=== PATIENT | male | born 1985 | race Caucasian/White ===

== ENCOUNTER 2017-09-10 14:05 | Emergency (ER) | payer SELFPAY ==
[~2017-09-10] VITALS: Ht 170.2 cm; Wt 83.5 kg
[2017-09-10 14:41] VITALS: Ht 170.2 cm; Wt 83.5 kg
[2017-09-10 16:13] LABS: BASOPHIL % 0.4 % (0-2); PLATELET COUNT 217 x10^3mcL (130-400); RED CELL DISTRIBUTION WIDTH 13.4 % (11.5-14.5)
[2017-09-10 16:25] LABS: CALCIUM 8.9 mg/dL (8.5-10.1); CARBON DIOXIDE 29.5 mmol/L (21-32); CHLORIDE SERUM 104 mmol/L (98-107); CREATININE SERUM 0.8 mg/dL (0.7-1.3); GFR1 > 60 mL/min; GLUCOSE SERUM 92 mg/dL (74-106); POTASSIUM SERUM 4.2 mmol/L (3.5-5.1); SODIUM SERUM 142 mmol/L (136-145)
[2017-09-10 16:29] LABS: ALKALINE PHOSPHATASE 100 U/L (46-116); ALT/SGPT 49 U/L (16-63); AST/SGOT 33 U/L (15-37); BILIRUBIN TOTAL 0.3 mg/dL (0.20-1.00); TOTAL PROTEIN, SERUM 7.6 g/dL (6.4-8.2)
[2017-09-10 17:04] VITALS: BP 136/84
== END 2017-09-10 17:04 | disposition home or self-care (01) ==
LOC: ED 14:05
PROVIDERS: Emergency Medicine
DX: R07.89 Other chest pain (principal)
CPT/HCPCS: 36415; 85378; J1885; Q0092

== ENCOUNTER 2017-09-22 22:18 | Inpatient (IN) | payer MEDICAID ==
[~2017-09-22] VITALS: Ht 172.7 cm; Wt 85.4 kg
[2017-09-22 23:00] VITALS: Ht 172.7 cm; Wt 85.4 kg
[2017-09-22 23:35] LABS: BASOPHIL % 0.3 % (0-2); CALCIUM 8.9 mg/dL (8.5-10.1); CARBON DIOXIDE 27.7 mmol/L (21-32); CHLORIDE SERUM 104 mmol/L (98-107); CREATININE SERUM 0.8 mg/dL (0.7-1.3); GFR1 > 60 mL/min; GLUCOSE SERUM 101 mg/dL (74-106); PLATELET COUNT 237 x10^3mcL (130-400); POTASSIUM SERUM 3.7 mmol/L (3.5-5.1); RED CELL DISTRIBUTION WIDTH 13.8 % (11.5-14.5); SODIUM SERUM 137 mmol/L (136-145)
[2017-09-22 23:41] LABS: ALBUMIN 3.9 g/dL (3.4-5.0); ALKALINE PHOSPHATASE 94 U/L (46-116); ALT/SGPT 281 U/L (16-63); AST/SGOT 652 U/L (15-37); BILIRUBIN TOTAL 0.5 mg/dL (0.20-1.00); LIPASE 164 IU/L (73-393); TOTAL PROTEIN, SERUM 7.2 g/dL (6.4-8.2)
[2017-09-23 00:27] LABS: AMPHETAMINE QUAL UR NONE DETECTED (NEG <=1000)
[2017-09-23 05:01] LABS: microscopic required? NO
[2017-09-23 05:05] LABS: UA SPECIFIC GRAVITY <=1.005 (1.005-1.035); urine erythrocyte NEGATIVE (NEGATIVE)
[2017-09-23 05:20] VITALS: BP 122/70
[2017-09-23 08:08] LABS: MAGNESIUM 1.9 mg/dL (1.8-2.4); PHOSPHOROUS 4.9 mg/dL (2.5-4.9)
[2017-09-23 08:16] LABS: CHOLESTEROL/HDL RATIO 2.3
[2017-09-23 08:22] LABS: FREE T4 0.97 ng/dL (0.76-1.46); FREE THYROXINE INDEX 2.1 ug/dL (1.4-4.5); T4(THYROXINE) 5.8 ug/dL (4.7-13.3)
[2017-09-23 08:32] LABS: T3 TOTAL 0.98 ng/mL
[2017-09-23 10:25] LABS: C REACTIVE PROTEIN 0.2 mg/dL (<=0.9)
[2017-09-23 10:43] VITALS: BP 119/71
[2017-09-23 14:31] VITALS: BP 113/63
[2017-09-23 17:13] VITALS: BP 107/47
[2017-09-23 21:33] VITALS: BP 108/60
[2017-09-24 05:35] VITALS: BP 102/49
[2017-09-24 06:19] LABS: BASOPHIL % 0.2 % (0-2); PLATELET COUNT 198 x10^3mcL (130-400); RED CELL DISTRIBUTION WIDTH 13.9 % (11.5-14.5)
[2017-09-24 06:39] LABS: CALCIUM 8.5 mg/dL (8.5-10.1); CARBON DIOXIDE 26.7 mmol/L (21-32); CHLORIDE SERUM 108 mmol/L (98-107); CREATININE SERUM 0.8 mg/dL (0.7-1.3); GFR1 > 60 mL/min; GLUCOSE SERUM 101 mg/dL (74-106); MAGNESIUM 1.8 mg/dL (1.8-2.4); POTASSIUM SERUM 4.2 mmol/L (3.5-5.1); SODIUM SERUM 139 mmol/L (136-145)
[2017-09-24 08:32] LABS: BILIRUBIN DIRECT 0.18 mg/dL (0.0-0.2); BILIRUBIN TOTAL 0.82 mg/dL (0.20-1.00); TOTAL PROTEIN, SERUM 6.2 g/dL (6.4-8.2)
[2017-09-24 08:34] LABS: ALBUMIN 3.2 g/dL (3.4-5.0)
[2017-09-24 09:19] VITALS: BP 103/51
[2017-09-24 18:44] VITALS: BP 115/58
[2017-09-24 21:28] VITALS: BP 122/65
[2017-09-25 05:47] VITALS: BP 105/59
[2017-09-25 07:52] LABS: BASOPHIL % 0.2 % (0-2); PLATELET COUNT 195 x10^3mcL (130-400); RED CELL DISTRIBUTION WIDTH 13.7 % (11.5-14.5)
[2017-09-25 08:21] LABS: ALKALINE PHOSPHATASE 59 U/L (46-116); ALT/SGPT 187 U/L (16-63); AST/SGOT 280 U/L (15-37); BILIRUBIN TOTAL 0.63 mg/dL (0.20-1.00); CARBON DIOXIDE 27.1 mmol/L (21-32); CHLORIDE SERUM 109 mmol/L (98-107); CREATININE SERUM 0.7 mg/dL (0.7-1.3); GFR1 > 60 mL/min; GLUCOSE SERUM 89 mg/dL (74-106); MAGNESIUM 1.7 mg/dL (1.8-2.4); PHOSPHOROUS 3.4 mg/dL (2.5-4.9); POTASSIUM SERUM 3.9 mmol/L (3.5-5.1); SODIUM SERUM 141 mmol/L (136-145)
[2017-09-25 08:24] LABS: ALBUMIN 3.1 g/dL (3.4-5.0)
[2017-09-25 08:32] VITALS: BP 104/62
[2017-09-25 09:48] VITALS: BP 104/62
[2017-09-25] MEDS ORDERED: MECLIZINE HYD12.5 MG PO (11:30)
[2017-09-25 12:07] VITALS: BP 104/62
[2017-09-25 13:41] VITALS: BP 122/82
== END 2017-09-25 14:20 | disposition home or self-care (01) ==
LOC: ED 22:18 → DU 09-23 04:35 → MU 09-24 10:51
PROVIDERS: Emergency Medicine; Family Medicine; Internal Medicine Gastroenterology
DX: B17.9 Acute viral hepatitis, unspecified (principal); M62.82 Rhabdomyolysis; K21.9 Gastro-esophageal reflux disease without esophagitis; M94.0 Chondrocostal junction syndrome [Tietze]
CPT/HCPCS: 83880; 84439; J1885; J7030; J8597; Q0092; Q0162; Q9966; Q9967

== ENCOUNTER 2018-02-03 11:00 | Emergency (ER) | payer MEDICAID ==
[~2018-02-03] VITALS: Ht 167.6 cm; Wt 94.8 kg
[~2018-02-03 11:00] MED LIST: MECLIZINE HYD12.5 MG PO
[2018-02-03 11:06] VITALS: Ht 167.6 cm; Wt 94.8 kg
[2018-02-03 11:42] LABS: BASOPHIL % 0.4 % (0-2); PLATELET COUNT 224 x10^3mcL (130-400); RED CELL DISTRIBUTION WIDTH 13.1 % (11.5-14.5)
[2018-02-03 11:50] LABS: CALCIUM 8.5 mg/dL (8.5-10.1); CARBON DIOXIDE 27.4 mmol/L (21-32); CHLORIDE SERUM 103 mmol/L (98-107); CREATININE SERUM 0.9 mg/dL (0.7-1.3); GFR1 > 60 mL/min; GLUCOSE SERUM 96 mg/dL (74-106); POTASSIUM SERUM 3.9 mmol/L (3.5-5.1); SODIUM SERUM 138 mmol/L (136-145)
[2018-02-03 11:54] LABS: ALKALINE PHOSPHATASE 104 U/L (46-116); ALT/SGPT 68 U/L (16-63); AMYLASE 66 U/L (25-115); AST/SGOT 38 U/L (15-37); BILIRUBIN TOTAL 0.4 mg/dL (0.20-1.00); LIPASE 132 IU/L (73-393); TOTAL PROTEIN, SERUM 8.1 g/dL (6.4-8.2)
[2018-02-03 13:03] LABS: AMPHETAMINE QUAL UR NONE DETECTED (See below)
[2018-02-03 13:25] VITALS: BP 128/68
== END 2018-02-03 13:25 | disposition home or self-care (01) ==
LOC: ED 11:00
PROVIDERS: Emergency Medicine
DX: K21.9 Gastro-esophageal reflux disease without esophagitis (principal); R07.89 Other chest pain
CPT/HCPCS: 83880; J2405; J3490; J7030; Q0092